=== PATIENT | male | born 1960 | race Caucasian/White ===

== ENCOUNTER 2017-10-28 19:25 | Emergency (ER) | payer BC, SELFPAY ==
[2017-10-28 19:26] VITALS: BP 164/86; PULSE 60; RESP 17; TEMP 36.3; O2SAT 98; BMI 26.3
--- NOTE | 2017-10-28 20:47 | ED.VISSUMM ---
- ER Visit Summary Date of Service: 10/28/17 Chief Complaint: [Laceration left thumb] History of Present Illness: The patient is a 57 M [presents to the emergency department after he sustained a laceration to his left thumb about an hour and a half ago. Patient states that he was cutting a piece of drywall with a new blade utility knife when he accidentally cut his left thumb. Patient is left-hand dominant. Last tetanus was last week.] Physical Examination: [Left thumb-patient has a flap laceration over the pulp of the thumb that is oval in shape and measures approximately 2 cm x 1 cm. There is only a small amount of skin holding the flap in place. He has normal range of motion at the IP joint. Neurovascularly intact.] Test Results: [None indicated] Emergency Department Course and Treatment: [Laceration repair-wound sterilely draped and prepped. Using 1% lidocaine total of 6 cc used to perform a digital block. Wound cleansed with Shur-Clens and irrigated with copious saline. Using 5-0 nylon a total of 9 single interrupted sutures placed with good wound edge approximation. Patient tolerated procedure well.] Patient was given 1 dose of Keflex in the emergency department Treatment Plan: [I will treat with Keflex for 1 week. Patient have sutures removed in 10 days. Patient to return if increasing pain, redness, swelling, purulent drainage, or condition should worsen anyway.] Disposition: [Discharged home stable condition] Impression: [Left thumb laceration 4 cm total length-simple repair] This note was generated with [employer] dictation software. It may contain incorrect words, spelling, and punctuation that were not noted in review of the chart prior to signing ED Disposition - Plan for ED Patient: Chief Complaint: Laceration Referrals: Feliz Barron MD [Primary Care Provider] -
--- NOTE | 2017-10-28 20:50 | ED.DCSUM_ITS ---
- ER Visit Summary Date of Service: 10/28/17 Chief Complaint: [Laceration left thumb] History of Present Illness: The patient is a 57 M [presents to the emergency department after he sustained a laceration to his left thumb about an hour and a half ago. Patient states that he was cutting a piece of drywall with a new blade utility knife when he accidentally cut his left thumb. Patient is left- hand dominant. Last tetanus was last week.] Physical Examination: [Left thumb-patient has a flap laceration over the pulp of the thumb that is oval in shape and measures approximately 2 cm x 1 cm. There is only a small amount of skin holding the flap in place. He has normal range of motion at the IP joint. Neurovascularly intact.] Test Results: [None indicated] Emergency Department Course and Treatment: [Laceration repair-wound sterilely draped and prepped. Using 1% lidocaine total of 6 cc used to perform a digital block. Wound cleansed with Shur-Clens and irrigated with copious saline. Using 5-0 nylon a total of 9 single interrupted sutures placed with good wound edge approximation. Patient tolerated procedure well.] Patient was given 1 dose of Keflex in the emergency department Treatment Plan: [I will treat with Keflex for 1 week. Patient have sutures removed in 10 days. Patient to return if increasing pain, redness, swelling, purulent drainage, or condition should worsen anyway.] Disposition: [Discharged home stable condition] Impression: [Left thumb laceration 4 cm total length-simple repair] This note was generated with [employer] dictation software. It may contain incorrect words, spelling, and punctuation that were not noted in review of the chart prior to signing ED Disposition - Plan for ED Patient: Chief Complaint: Laceration Referrals: Feliz Barron MD [Primary Care Provider] -
--- NOTE | 2017-10-28 20:50 | ED.DEP ---
ED Disposition - Plan for ED Patient: Chief Complaint: Laceration Instructions: ED Laceration Hand Prescriptions: Cephalexin [Keflex] 500 mg PO Q6 #28 cap Referrals: Feliz Barron MD [Primary Care Provider] - 10 Day for suture removal
== END 2017-10-28 21:03 | disposition home or self-care (01) ==
LOC: ED 19:53
PROVIDERS: Emergency Provider Emergency Medicine; Family Provider Family Medicine; PCP Family Medicine
DX: S61.012A Laceration without foreign body of left thumb without damage to nail, initial encounter (principal); W26.0XXA Contact with knife, initial encounter; Y93.9 Activity, unspecified; Y92.9 Unspecified place or not applicable; Y99.9 Unspecified external cause status; F17.290 Nicotine dependence, other tobacco product, uncomplicated; Z79.899 Other long term (current) drug therapy
CPT/HCPCS: 12002; 99283

== ENCOUNTER 2018-07-02 08:17 | Day surgery (SDC) | payer BC, SELFPAY ==
[2018-06-14 13:05] VITALS: BMI 25.5
--- NOTE | 2018-06-14 13:21 | HP_ITS ---
Intake Vital Signs 06/14/18 Height 5 ft 7 in 06/14/18 Weight: 163 lb 06/14/18 Body Mass Index (BMI) 25.5 06/14/18 Blood Pressure 173/92 H 06/14/18 Blood Pressure Location Lt brachial 06/14/18 Blood Pressure Position Sitting 06/14/18 Respiratory Rate 18 06/14/18 Pulse Rate 69 Intake Visit Reasons: POSITIVE HEMMOCULT TEST [employer] Specialist Required: No Is patient in pain?: No Allergies No Known Allergies Allergy (Verified 06/14/18 13:06) Medications Losartan/Hydrochlorothiazide [Hyzaar 100-12.5 Tablet] 1 tab PO DAILY 10/28/17 [History Confirmed 06/14/18] Rosuvastatin Calcium 20 mg PO DAILY 10/28/17 [History Confirmed 06/14/18] sildenafil 100 mg tablet 100 mg PO DAILY PRN 06/14/18 [History Confirmed 06/14/18] PFSH Medical History High cholesterol (Acute) HTN (hypertension) (Chronic) Surgical History History of surgery on arm (Acute) S/P cataract extraction (Acute) S/P hernia repair (Acute) S/P rotator cuff repair (Acute) S/P tonsillectomy (Acute) Social History Smoking Status: Current every day smoker alcohol intake: current alcohol intake frequency: 3 or more drinks per day ROS General General: No weight change, appetite, fatigue, colon cancer, breast cancer or weakness HEENT HEENT: Yes eye injury and eye surgery; no difficulty swallowing, swollen glands or hoarseness Endo Endocrine: No thyroid disease, diabetes mellitus, thyroid cancer, Hair loss, heat intolerance or cold intolerance Skin Skin: No rash or changing moles Breast Breast: No left breast lump, right breast lump, nipple discharge, breast pain, abnormal mammogram, abnormal US or breast enlargement Musc Musculoskeletal: No back problems, arthritis, rheumatoid arthritis, gout or joint pain Cardio Cardiovascular: Yes high blood pressure; no murmur, pacemaker, heart disease, atrial fibrillation, heart attack, heart stent, palpitations, shortness of breat with exertion or chest pain Psych Psychiatric: No depression, anxiety or hearing voices Resp Respiratory: No shortness of breath, No sleep apnea, No cough, No COPD, No asthma, No emphysema, No wheezing Gastro Gastrointestinal: No abdominal pain, No nausea or vomiting, No diarrhea, No constipation, Yes blood in stool, No acid reflux, No hemorrhoids, No ulcers, No gallbladder problem, No black,tarry stools Reyes Hematologic: No blood thinners, No blood disorders, No bleeding, No anemia, No blood clots Neuro Neurologic: No system reviewed and no additional complaints, except as docu, No as per HPI, No abnormal walking, No abnormal hearing, No abnormal movements, No abnormal speech, No behavioral changes, No burning sensations, No confusion, No seizure-like activity, No unsteadiness, No dizziness, No localized weakness, No frequent falls, No headache(s), No lack of coordination, No loss of vision, No memory loss, No numbness, No other visual disturbances, No radiating pain, No restless legs, No sensory deficit, No fainting, No tingling, No tremor(s), No weakness, No other Exam Const General: cooperative, comfortable, no acute distress Nutritional Appearance: average body habitus Orientation: alert, awake, oriented x3 HENMT Head: normal to inspection Chest Chest palpation & inspection: normal inspection of the chest Breast Palpation: No nipple discharge Resp Effort & Inspection: normal respiratory effort Auscultation: clear to auscultation bilaterally Cardio Rate: regular rate Rhythm: regular rhythm Heart Sounds: no murmurs GI Inspection: normal to inspection Palpation: soft, no hepatosplenomegaly Auscultation: normal bowel sounds Skin Other: Well-healed well-healed skin graft right forearm Neuro General: alert, awake Extrem General: no calf tenderness bilaterally Psych Affect: normal affect Assessment & Plan Problems 1. Positive occult stool blood test R19.5 Plan I am recommending to the patient that with his next laboratory draw within the next week that we obtain a CBC to assess for possible chronic anemia. I have recommended the patient a combined esophagogastroduodenoscopy and colonoscopy with possible biopsy or polypectomy is indicated. He is aware of the technique, benefit, risks and alternatives. We will utilize monitored anesthesia care. Because of his concerns about possible alcohol withdrawals symptoms it seems reasonable to allow him to continue to drink the day prior to the intervention while still performing his bowel prep. He he has had an opportunity to ask and have questions answered. We will schedule and proceed at his discretion. CC: Dr. Raul Taylor M.D., F.A.C.S. Orders Orders: CBC-Complete Blood Cnt No Diff Today K62.5 Coding Level of Care Code Off vis,est,level 3 Diagnoses Positive occult stool blood test R19.5
[2018-07-02 08:45] VITALS: BP 161/86; PULSE 77; RESP 16; TEMP 36.9; O2SAT 98; BMI 25.9
--- NOTE | 2018-07-02 09:30 | EGD_PTH ---
PATIENT: CLYDE XAVIER LOC: EN U#:[id number] AGE/SX: 58/M ROOM: RE07/02/[address]: Dr. Tanner Taylor MD : 1960 BED: DIS: 07/02/2018 SPEC #: [id number] RECD: 07/02/18 11:37 STATUS: KIA SIVA #: [id number] DUSTY: 07/02/18 09:[address]: Tanner Taylor DEPT: SURGICAL PATHOLOGY RECD BY: Sidney Patel ENTERED: 07/02/18 11:51 SP TYPE: EGD BIOPSY OT DR: Dr. Feliz Barron MD Tissues: A - Gastric mucous membrane B - Gastric mucous membrane Procedures: Special Stain Group II Surgery Specimen Level IV Alcian Blue/PAS (control) HEADER OPERATION: Colonoscopy, EGD ([facility] [place]) PRE-OP DIAGNOSIS: Positive Hemoccult test TISSUE SUBMITTED: A - Antral biopsy for H. pylori and pathology, B - EG junction biopsy MICROSCOPIC DIAGNOSIS A. Gastric antrum, biopsy: Mild chronic gastritis. B. Gastroesophageal junction, biopsy: Consistent with reflux esophagitis. No evidence of intestinal metaplasia. See comment. AM:mony 07/05/18 COMMENT A. The results of immunohistochemistry for Helicobacter pylori will be reported separately ([id number]). B. Alcian blue/PAS stain with matched control supports the above diagnosis. There is no evidence of dysplasia. The specimen primarily consists of benign squamous epithelium. MICROSCOPIC DESCRIPTION Slides are reviewed. GROSS DESCRIPTION A - Received in fixative is one container labeled with the patient's name and designated antral biopsy. The specimen consists of multiple irregular fragments of light mosley soft tissue that in aggregate measure 0.6 x 0.2 x 0.1 cm. The specimen is totally submitted in one cassette. B - Received in fixative is one container labeled with the patient's name and designated EG junction biopsy. The specimen consists of multiple irregular fragments of light mosley soft tissue that in aggregate measure 0.5 x 0.5 x 0.1 cm. The specimen is totally submitted in one cassette. / J CARLOS:mony 07/02/18 TC:3 CPT: 25242 x2, [id number]
--- NOTE | 2018-07-02 09:30 | IMM_PTH ---
PATIENT: CLYDE XAVIER LOC: EN U#:[id number] AGE/SX: 58/M ROOM: RE07/02/[address]: Dr. Tanner Taylor MD : 1960 BED: DIS: 07/02/2018 SPEC #: [id number] RECD: 07/02/18 12:50 STATUS: KIA [place] #: [id number] DUSTY: 07/02/18 09:[address]: Tanner Taylor DEPT: IMMUNOHISTOCHEMISTRY RECD BY: Lakshmi Elise ENTERED: 07/02/18 12:51 SP TYPE: IMMUNO OTHR DR: Dr. Feliz Barron MD Tissues: A - Stomach, NOS Procedures: H Pylori (initial) PHYSICIAN & INSTITUTION [place] [id number] SPECIMEN INFORMATION: Tissue Source: A - Antral biopsy Clinical Info: Positive Hemoccult test Specimen Number: [id number] CPT code: 31086 METHODOLOGY: Deparaffinized sections of prefer/formalin-fixed tissue or PAP/DQ stained slides are incubated with monoclonal/polyclonal antibodies/oligonucleotide probes. Localization is made via biotin free immunoperoxidase method. Appropriate controls are performed and reacted as expected. Results on target cell population are indicated in the following table: RESULTS: ANTIBODY / CLONE RESULT Block A H Pylori (polyclonal) negative These tests were developed and their performance characteristics determined by [facility]. They may not have been cleared or approved by the [place]. Food and Drug Administration. The FDA has determined that such clearance or approval is not necessary. INTERPRETATION: A. Antral biopsy: Negative for Helicobacter pylori organisms. AM:mony 07/05/18
[2018-07-02 10:47] VITALS: BP 136/90; BP 161/86; PULSE 65; RESP 16; TEMP 36.5; O2SAT 98
--- NOTE | 2018-07-02 10:49 | OP.ENDO_ITS ---
07/02/2018 Feliz Barron Re : Upper GI endoscopy procedure for Nir Mcgilld This procedure was performed on Monday, July 02, 2018. My impressions and recommendations are as follows: Impressions : - LA Grade A reflux esophagitis. Biopsied. Small hiatal hernia and early schatzki ring - Z-line variable, 42 cm from the incisors. - Erythematous mucosa in the antrum. Biopsied. - Normal examined duodenum. Recommendations : - Discharge patient to home. - Resume previous diet. - Continue present medications. - Use Prilosec (omeprazole) 40 mg PO daily. - Resume previous diet. - Telephone my office for pathology results in 1 week. These findings would be consistent with a positive hemocult card. My findings are described in the full procedure note, which is enclosed. If I can be of further assistance, please feel free to contact me at Doctor phone number(s): Work: . Sincerely, Tanner Taylor MD 07/02/2018 10:49:13 AM This report has been signed electronically.
[2018-07-02 10:50] VITALS: BP 133/88; BP 161/86; PULSE 65; RESP 16; O2SAT 98
--- NOTE | 2018-07-02 10:52 | OP.ENDO_ITS ---
07/02/2018 Feliz Barron Re : Colonoscopy procedure for Nir Marshallr Anderson This procedure was performed on Monday, July 02, 2018. My impressions and recommendations are as follows: Impressions : - Diverticulosis in the entire examined colon. - The examination was otherwise normal. - No specimens collected. Recommendations : - Discharge patient to home. - Resume previous diet. - Continue present medications. - Repeat colonoscopy in 10 years for screening purposes. My findings are described in the full procedure note, which is enclosed. If I can be of further assistance, please feel free to contact me at Doctor phone number(s): Work: . Sincerely, Tanner Taylor MD 07/02/2018 10:52:18 AM This report has been signed electronically.
[2018-07-02 10:55] VITALS: BP 135/91; BP 161/86; PULSE 70; RESP 16; O2SAT 99
[2018-07-02 11:00] VITALS: BP 136/82; BP 161/86; PULSE 58; RESP 16; TEMP 36.7; O2SAT 98
[2018-07-02 11:21] VITALS: BP 161/86
== END 2018-07-02 11:28 | disposition home or self-care (01) ==
LOC: EN 08:17
PROVIDERS: Family Provider Family Medicine; PCP Family Medicine; Referring Provider Family Medicine; Visit Provider Surgery
PROC: 0DJD8ZZ Inspection of Lower Intestinal Tract, Via Natural or Artificial Opening Endoscopic (ICD-10-PCS; CPT 45378; principal; 2018-07-02 09:25)
DX: K21.0 Gastro-esophageal reflux disease with esophagitis (principal); K29.50 Unspecified chronic gastritis without bleeding; K44.9 Diaphragmatic hernia without obstruction or gangrene; K22.2 Esophageal obstruction; K57.90 Diverticulosis of intestine, part unspecified, without perforation or abscess without bleeding; R19.5 Other fecal abnormalities; I10 Essential (primary) hypertension; E78.00 Pure hypercholesterolemia, unspecified; Z79.899 Other long term (current) drug therapy; F17.200 Nicotine dependence, unspecified, uncomplicated
CPT/HCPCS: 43239; 45378; 88305; 88313; 88342; J7120